=== PATIENT | female | born 1980 | race Two or more races ===

== ENCOUNTER 2016-10-06 08:15 | Emergency (ER) | payer MEDICAID ==
[2016-10-06] MEDS ORDERED: CEPHALEXIN 500 MG CAP PO ONE (08:42)
[2016-10-06] MEDS ORDERED: DEXAMETHASONE 10 MG/ML VIAL PO ONE (08:42)
[2016-10-06 08:46] VITALS: BP 125/86; PULSE 98; RESP 16; TEMP 98.8; O2SAT 96
--- NOTE | 2016-10-06 08:47 | UCPHY ---
H & P Patient Type: Established Time Seen by Provider: 10/06/16 08:38 HPI/ROS: CHIEF COMPLAINT: sore throat, fever HISTORY OF PRESENT ILLNESS: The patient is a 35-year-old female comes to the Urgent Care complaining of a sore throat and fever. She states that 2 of her sons were diagnosed and treated for strep throat last week. She had a temperature of 101 degrees last night. She has not been coughing or had any shortness of breath. She has not had a headache. She has had sinus congestion and body aches. No nausea vomiting. No shortness of breath. REVIEW OF SYSTEMS: Constitutional: See HPI EENTM: See HPI Respiratory: denies: cough, shortness of breath Cardiac: denies: chest pain, irregular heart rate, lightheadedness, palpitations Gastrointestinal/Abdominal: denies: abdominal pain, diarrhea, nausea, vomiting, blood streaked stools Genitourinary: denies: dysuria, frequency, hematuria, pain Musculoskeletal: denies: joint pain, muscle pain Skin: denies: lesions, rash, jaundice, bruising Neurological: denies: headache, numbness, paresthesia, tingling, dizziness, weakness Hematologic/Lymphatic: denies: blood clots, easy bleeding, easy bruising Immunologic/allergic: denies: HIV/AIDS, transplant EXAM: GENERAL: Well-appearing, well-nourished and in no acute distress. HEAD: Atraumatic, normocephalic. EYES: Pupils equal round and reactive to light, extraocular movements intact, sclera anicteric, conjunctiva are normal. ENT: TMs normal, nares patent, oropharynx erythematous with white exudate . Moist mucous membranes. NECK: Normal range of motion, supple without lymphadenopathy or JVD. LUNGS: Breath sounds clear to auscultation bilaterally and equal. No wheezes rales or rhonchi. HEART: Regular rate and rhythm without murmurs, rubs or gallops. ABDOMEN: Soft, nontender, normoactive bowel sounds. No guarding, no rebound. No masses appreciated. BACK: No CVA tenderness, no spinal tenderness, step-offs or deformities EXTREMITIES: Normal range of motion, no pitting or edema. No clubbing or cyanosis. NEUROLOGICAL: Cranial nerves II through XII grossly intact. Normal speech, normal gait. 5/5 strength, normal movement in all extremities, normal sensation PSYCH: Normal mood, normal affect. SKIN: Warm, dry, normal turgor, no visible rashes or lesions. Source: Patient Exam Limitations: No limitations - Medical/Surgical History Hx Asthma: No Hx Chronic Respiratory Disease: No Hx Diabetes: No Hx Cardiac Disease: No Hx Renal Disease: No Hx Cirrhosis: No Other PMH: PCP Naseem Butt [facility]. Chronic Pancreatitis idiopathic. Tubal ligation. ERCP. Flu . Tetanus NONE - Family History Significant Family History: Hypertension - Social History Smoking Status: Never smoked Alcohol Use: Sober Drug Use: None Constitutional: Initial Vital Signs Temperature (C) 37.1 C 10/06/16 08:38 Heart Rate 98 10/06/16 08:38 Respiratory Rate 16 10/06/16 08:38 Blood Pressure 125/86 H 10/06/16 08:38 O2 Sat (%) 96 10/06/16 08:38 O2 Delivery Mode Room Air Allergies/Adverse Reactions: codeine Allergy (Verified 10/06/16 08:46) erythromycin base Allergy (Verified 10/06/16 08:46) orange (food color) Allergy (Verified 10/06/16 08:46) Penicillins Allergy (Verified 10/06/16 08:46) red dye Allergy (Verified 10/06/16 08:46) tetanus and diphtheria toxoids [tetanus & diphtheria toxoids] Allergy (Verified 10/06/16 08:46) tetracycline Allergy (Verified 10/06/16 08:46) Home Medications: Medication Instructions Recorded Lansoprazole [Prevacid] 07/22/15 Albuterol [Proventil 2 mg (*)] PRN 09/30/15 Loratadine [Claritin] 09/30/15 Sumatriptan Succinate [IMITREX] 09/30/15 Cephalexin [Keflex (*)] 500 mg PO BID #20 cap 07/29/16 Depo-Provera 07/29/16 Ondansetron HCl Pf 07/29/16 Prevacid 07/29/16 oxyCODONE CR 07/29/16 Cephalexin [Keflex] 500 mg PO TID #21 cap 10/06/16 Medical Decision Making ED Course/Re-evaluation: The patient has symptoms consistent with strep throat and said to family members recently diagnosed. I will start her on antibiotics. I will also give her a dose of Decadron for pain relief. She will continue taking antipyretics. She understands and agrees with this plan. She declines further workup or testing at this time. We discussed indications for returning. She is allergic to azithromycin. She has had success with Keflex before. Differential Diagnosis: Partial list of the Differential diagnosis considered include but were not limited to; strep throat, pharyngitis, influenza, Mononucleosis, viral syndrome and although unlikely based on the history and physical exam, I also considered pneumonia, meningitis, sepsis. I discussed these differential diagnoses and the plan with the patient as well as the usual and expected course. The patient understands that the diagnosis is provisional and that in medicine we are not always correct and that further workup is often warranted. Usual and customary warnings were given. All of the patient's questions were answered. The patient was instructed to return to the emergency department should the symptoms at all worsen or return, otherwise to followup with the physician as we discussed. - Data Points Laboratory Results: 10/06/16 08:35 Group A Strep Screen POSITIVE H (NEGATIVE) Medications Given: Discontinued Medications Cephalexin HCl (Keflex) 500 mg PO EDNOW ONE PRN Reason: Protocol Stop: 10/06/16 08:43 Last Admin: 10/06/16 09:02 Dose: 500 mg Dexamethasone (Decadron Injection) 10 mg PO EDNOW ONE Stop: 10/06/16 08:43 Last Admin: 10/06/16 09:02 Dose: 10 mg Departure - Departure Disposition: Home, Routine, Self-Care Clinical Impression: Pharyngitis Qualifiers: Pharyngitis/tonsillitis etiology: unspecified etiology Qualified Code(s): J02.9 - Acute pharyngitis, unspecified Condition: Fair Instructions: Pharyngitis (ED) Referrals: NONE *PRIMARY CARE P,. [Primary Care Provider] - As per Instructions Khushbu Kumari MD [Medical Doctor] - As per Instructions Prescriptions: Cephalexin [Keflex] 500 mg PO TID #21 cap - PQRS PQRS Measurement: Not applicable
== END 2016-10-06 09:03 | disposition home or self-care (01) ==
LOC: CED 08:15
DX: J02.9 Acute pharyngitis, unspecified (principal)
CPT/HCPCS: 87880-PO; 99214-PO; G0463-PO

== ENCOUNTER 2016-11-10 17:49 | Emergency (ER) | payer MEDICAID ==
[2016-11-10 18:04] VITALS: BP 123/84; PULSE 102; RESP 18; TEMP 98.2; O2SAT 97
--- NOTE | 2016-11-10 18:26 | UCPHY ---
H & P Patient Type: Established Chief Complaint Nursing Narrative: sinus congestion, fevers, sore throat, productive cough, [place], L ear pain, loss of voice x 1.5 weeks. "I think I have a sinus infection" Time Seen by Provider: 11/10/16 18:14 HPI/ROS: CHIEF COMPLAINT: Sinus infection HISTORY OF PRESENT ILLNESS: The patient is a 35-year-old healthy female who comes to the Urgent Care complaining of sinus congestion, pain, dental pain, ear congestion and laryngitis. She does not have a fever. She has had coughing but no shortness of breath. No chest pain. No nausea vomiting or GI symptoms. REVIEW OF SYSTEMS: Constitutional: denies: chills, fever, recent illness, recent injury EENTM: See HPI Respiratory: See HPI Cardiac: denies: chest pain, irregular heart rate, lightheadedness, palpitations Gastrointestinal/Abdominal: denies: abdominal pain, diarrhea, nausea, vomiting, blood streaked stools Genitourinary: denies: dysuria, frequency, hematuria, pain Musculoskeletal: denies: joint pain, muscle pain Skin: denies: lesions, rash, jaundice, bruising Neurological: denies: headache, numbness, paresthesia, tingling, dizziness, weakness Hematologic/Lymphatic: denies: blood clots, easy bleeding, easy bruising Immunologic/allergic: denies: HIV/AIDS, transplant EXAM: GENERAL: Well-appearing, well-nourished and in no acute distress. HEAD: Atraumatic, normocephalic. EYES: Pupils equal round and reactive to light, extraocular movements intact, sclera anicteric, conjunctiva are normal. ENT: Effusions behind both tympanic membranes, tenderness to maxillary sinuses , , nares patent, oropharynx erythematous without exudates. Moist mucous membranes. NECK: Normal range of motion, supple without lymphadenopathy or JVD. LUNGS: Breath sounds clear to auscultation bilaterally and equal. No wheezes rales or rhonchi. HEART: Regular rate and rhythm without murmurs, rubs or gallops. ABDOMEN: Soft, nontender, normoactive bowel sounds. No guarding, no rebound. No masses appreciated. BACK: No CVA tenderness, no spinal tenderness, step-offs or deformities EXTREMITIES: Normal range of motion, no pitting or edema. No clubbing or cyanosis. NEUROLOGICAL: Cranial nerves II through XII grossly intact. Normal speech, normal gait. 5/5 strength, normal movement in all extremities, normal sensation PSYCH: Normal mood, normal affect. SKIN: Warm, dry, normal turgor, no visible rashes or lesions. Source: Patient, Family - Personal History LMP (Females 10-55): Now Current Tetanus Diphtheria and Acellular Pertussis (TDAP): No Tetanus Vaccine Date: allergy - Medical/Surgical History Hx Asthma: Yes Hx Chronic Respiratory Disease: No Hx Diabetes: No Hx Cardiac Disease: No Hx Renal Disease: No Hx Cirrhosis: No Hx Alcoholism: No Hx HIV/AIDS: No Hx Splenectomy or Spleen Trauma: No Other PMH: asthma, sciatica, Vitamin D deficiency, sinus infections. Chronic Pancreatitis idiopathic. Tubal ligation. ERCP. Flu . Tetanus NONE - Family History Significant Family History: No pertinent family hx - Social History Smoking Status: Never smoked Alcohol Use: Sober Drug Use: None Constitutional: Initial Vital Signs Temperature (C) 36.8 C 11/10/16 17:59 Heart Rate 102 H 11/10/16 17:59 Respiratory Rate 18 11/10/16 17:59 Blood Pressure 123/84 H 11/10/16 17:59 O2 Sat (%) 97 11/10/16 17:59 O2 Delivery Mode Room Air Allergies/Adverse Reactions: codeine Allergy (Verified 11/10/16 18:04) erythromycin base Allergy (Verified 11/10/16 18:04) orange (food color) Allergy (Verified 11/10/16 18:04) Penicillins Allergy (Verified 11/10/16 18:04) red dye Allergy (Verified 11/10/16 18:04) tetanus and diphtheria toxoids [tetanus & diphtheria toxoids] Allergy (Verified 11/10/16 18:04) tetracycline Allergy (Verified 11/10/16 18:04) Home Medications: Medication Instructions Recorded Lansoprazole [Prevacid] 07/22/15 Albuterol [Proventil 2 mg (*)] PRN 09/30/15 Loratadine [Claritin] 09/30/15 Sumatriptan Succinate [IMITREX] 09/30/15 Ondansetron HCl Pf 07/29/16 Prevacid 07/29/16 oxyCODONE CR 07/29/16 Ciprofloxacin [Cipro] 500 mg PO BID #14 tab 11/10/16 Medical Decision Making ED Course/Re-evaluation: 6:20 p.m. the patient has symptoms consistent with sinusitis. She is requesting antibiotics. She has multiple drug allergies. I treated her with Keflex about a month ago for strep throat. I will start her on ciprofloxacin. She is agree with this. She declines further workup or testing. We had a discussion about quinolones and I told them that this is a an antibiotic that could potentially have some serious complications. We agreed that in this situation this is the right medication and one that I would give my family member but they do need to be aware these complications. We discussed increased risk of tendon rupture as well as peripheral neuropathy. I advised the patient to limit high impact activities. I told them to return for evaluation if they develop tendon or joint pain. This conversation represented shared medical decision making. We did consider alternatives. Differential Diagnosis: Partial list of the Differential diagnosis considered include but were not limited to; sinusitis, upper respiratory tract infection, pharyngitis, otitis media and although unlikely based on the history and physical exam, I also considered meningitis, abscess, pneumonia. I discussed these differential diagnoses and the plan with the patient as well as the usual and expected course. The patient understands that the diagnosis is provisional and that in medicine we are not always correct and that further workup is often warranted. Usual and customary warnings were given. All of the patient's questions were answered. The patient was instructed to return to the emergency department should the symptoms at all worsen or return, otherwise to followup with the physician as we discussed. Departure - Departure Disposition: Home, Routine, Self-Care Clinical Impression: Sinusitis Qualifiers: Sinusitis location: maxillary Chronicity: acute Recurrence: non-recurrent Qualified Code(s): J01.00 - Acute maxillary sinusitis, unspecified Condition: Fair Instructions: Sinusitis (ED) Referrals: Torey Hannon DO [Doctor of Osteopathy] - As per Instructions Prescriptions: Ciprofloxacin [Cipro] 500 mg PO BID #14 tab - PQRS PQRS Measurement: Not applicable
== END 2016-11-10 18:35 | disposition home or self-care (01) ==
LOC: CED 17:49
DX: J01.00 Acute maxillary sinusitis, unspecified (principal); J45.909 Unspecified asthma, uncomplicated; K86.1 Other chronic pancreatitis; Z88.0 Allergy status to penicillin; Z88.5 Allergy status to narcotic agent
CPT/HCPCS: G0463-PO

== ENCOUNTER 2017-02-24 11:51 | Emergency (ER) | payer MEDICAID ==
--- NOTE | 2017-02-24 12:19 | EDPHY ---
H & P Stated Complaint: sinus pain severe for 3 days." vomited and severe pain" Time Seen by Provider: 02/24/17 12:11 HPI/ROS: CHIEF COMPLAINT: Sinus pain, vomiting HISTORY OF PRESENT ILLNESS: The patient has a history of chronic pancreatitis. She presents to the ED with a 3 day history of sinus pain, left ear pain and intermittent vomiting. The patient reports she had her lipase checked within the past week and it was slightly elevated at 400. This is not atypical for her. The patient denies any melena or hematochezia. She denies fever. She denies additional complaints. She has been taking Tylenol and ibuprofen at home with some improvement of her symptoms. She has had multiple visits to the urgent care and ED this year for symptoms surrounding sinus pain and vomiting. REVIEW OF SYSTEMS: A comprehensive 10 point review of systems is otherwise negative aside from elements mentioned in the history of present illness. Source: Patient Exam Limitations: No limitations - Personal History LMP (Females 10-55): Unknown Current Tetanus/Diphtheria Vaccine: No Current Tetanus Diphtheria and Acellular Pertussis (TDAP): No Tetanus Vaccine Date: allergy - Medical/Surgical History Hx Asthma: Yes Hx Chronic Respiratory Disease: No Hx Diabetes: No Hx Cardiac Disease: No Hx Renal Disease: No Hx Cirrhosis: No Hx Alcoholism: No Hx HIV/AIDS: No Hx Splenectomy or Spleen Trauma: No Other PMH: asthma, sciatica, Vitamin D deficiency, sinus infections. Chronic Pancreatitis idiopathic. Tubal ligation. ERCP. Tetanus NONE - Social History Smoking Status: Never smoked - Physical Exam Exam: General Appearance: Alert, no distress Eyes: Pupils equal and round no pallor or injection ENT, Mouth: Evidence of left otitis media present, tenderness to palpation over left frontal sinus Respiratory: There are no retractions, lungs are clear to auscultation Cardiovascular: Regular rate and rhythm Gastrointestinal: Minimal epigastric tenderness Neurological: A&O, normal motor function, normal sensory exam, normal cranial nerves Skin: Warm and dry, no rashes Musculoskeletal: Neck is supple nontender Extremities: symmetrical, full range of motion Constitutional: Initial Vital Signs Temperature (C) 36.6 C 02/24/17 11:55 Heart Rate 96 02/24/17 11:55 Respiratory Rate 16 02/24/17 11:55 Blood Pressure 118/94 H 02/24/17 11:55 O2 Sat (%) 97 02/24/17 11:55 O2 Delivery Mode Room Air Allergies/Adverse Reactions: codeine Allergy (Verified 02/24/17 12:07) erythromycin base Allergy (Verified 02/24/17 12:07) orange (food color) Allergy (Verified 02/24/17 12:07) Penicillins Allergy (Verified 02/24/17 12:07) red dye Allergy (Verified 02/24/17 12:07) tetanus and diphtheria toxoids [tetanus & diphtheria toxoids] Allergy (Verified 02/24/17 12:07) tetracycline Allergy (Verified 02/24/17 12:07) Home Medications: Medication Instructions Recorded Lansoprazole [Prevacid] 07/22/15 Albuterol [Proventil 2 mg (*)] PRN 09/30/15 Loratadine [Claritin] 09/30/15 Sumatriptan Succinate [IMITREX] 09/30/15 Ondansetron HCl Pf 07/29/16 Prevacid 07/29/16 oxyCODONE CR 07/29/16 Ciprofloxacin [Cipro] 500 mg PO BID #14 tab 11/10/16 AZITHROMYCIN [Z-PACK] 250 mg PO DAILY #1 packet 02/24/17 Ciprofloxacin [Cipro] 500 mg PO BID #14 tab 02/24/17 oxyCODONE/APAP 5/325 [Percocet 1 - 2 tab PO Q6-8PRN PRN #11 tab 02/24/17 5/325 (RX)] Medical Decision Making ED Course/Re-evaluation: The patient presents the ED with sinusitis, otitis media and an acute exacerbation of chronic abdominal pain. The patient does have evidence of otitis media noted on exam and clinical evidence of a left maxillary sinusitis. The patient will be treate treated with Cipro given her multiple medication allergies . She is given a short prescription for Percocet for pain management. She does have a prescription for Zofran at home. Differential Diagnosis: Differential diagnosis considered includes otitis media, sinusitis, viral syndrome, pharyngitis Departure - Departure Disposition: Home, Routine, Self-Care Clinical Impression: Sinusitis, Otitis media, Chronic pancreatitis Condition: Good Instructions: Sinusitis (ED) Additional Instructions: 1. Please take antibiotics as directed for next week. 2. Take Ibuprofen or Motrin 600 mg by mouth three times a day. 3. Percocet as needed for severe pain 4. Return to the ED for fever, intractable pain or vomiting or other concerns. 5. You have been given the contact number of our on-call ENT physician for further evaluation of your chronic intermittent sinus pain Referrals: NICKO CHRISTINE [Other] - As per Instructions Pierre Jones MD [Medical Doctor] - As per Instructions Prescriptions: AZITHROMYCIN [Z-PACK] 250 mg PO DAILY #1 packet Ciprofloxacin [Cipro] 500 mg PO BID #14 tab oxyCODONE/APAP 5/325 [Percocet 5/325 (RX)] 1 - 2 tab PO Q6-8PRN PRN #11 tab PRN Reason: for pain
[2017-02-24 12:35] VITALS: BP 124/66; PULSE 74; RESP 18; TEMP 98; O2SAT 96
== END 2017-02-24 12:35 | disposition home or self-care (01) ==
LOC: CED 11:51
DX: H66.92 Otitis media, unspecified, left ear (principal); J32.1 Chronic frontal sinusitis; K86.1 Other chronic pancreatitis; J45.909 Unspecified asthma, uncomplicated

== ENCOUNTER 2017-04-03 15:17 | Emergency (ER) | payer MEDICAID ==
--- NOTE | 2017-04-03 15:28 | EDPHY ---
H & P Time Seen by Provider: 04/03/17 15:20 HPI/ROS: 36-year-old female presents complaining of right lower dental pain for approximately 2 days, she states she went to an urgent care today where she was given cephalexin and ibuprofen, but feels she needs something stronger for pain. She is able to swallow, no fevers or chills, no tongue swelling. .Review of systems As per HPI General no fever no chills no weakness HEENT no eye pain no eye discharge. No eye redness, no sore throat Respiratory no cough, no shortness of breath Cardiac no chest pain, no peripheral edema GI no abdominal pain, no diarrhea, no constipation, no nausea, no vomiting no flank pain, no hematuria, no dysuria Musculoskeletal no myalgias, no joint pain Heme no easy bruising, no easy bleeding Endo no polyuria, no polydipsia Skin no rashes, no pruritus Neuro no syncope, no dizziness, no headaches Psych is no suicidal ideation, no homicidal ideation Past Medical/Surgical History: Frequent sinusitis Social History: Denies alcohol or drug use Smoking Status: Never smoked Physical Exam: 36-year-old female alert and oriented in moderate distress secondary to right lower molar pain Vital signs stable, afebrile nontoxic appearance HEENT atraumatic normocephalic, extraocular muscles intact, anicteric Oropharynx negative for erythema negative exudate, tolerating her own secretions No tongue elevation, no gum swelling, mild tenderness to tap of posterior most molar right lower No trismus No lymphadenopathy Neck supple no meningismus Lungs clear to auscultation bilaterally Heart regular rate and rhythm without murmur rub or gallop Abdomen nondistended normoactive bowel sounds soft nontender Back no CVA tenderness, no step-offs, no spinal tenderness Extremities no cyanosis clubbing or edema Neuro alert and oriented, no focal deficits Constitutional: Initial Vital Signs Temperature (C) 36.6 C 04/03/17 15:35 Heart Rate 80 04/03/17 15:35 Respiratory Rate 18 04/03/17 15:35 Blood Pressure 165/70 H 04/03/17 15:35 O2 Sat (%) 98 04/03/17 15:35 O2 Delivery Mode Room Air Allergies/Adverse Reactions: codeine Allergy (Verified 02/24/17 12:07) erythromycin base Allergy (Verified 02/24/17 12:07) orange (food color) Allergy (Verified 02/24/17 12:07) Penicillins Allergy (Verified 02/24/17 12:07) red dye Allergy (Verified 02/24/17 12:07) tetanus and diphtheria toxoids [tetanus & diphtheria toxoids] Allergy (Verified 02/24/17 12:07) tetracycline Allergy (Verified 02/24/17 12:07) Home Medications: Medication Instructions Recorded Lansoprazole [Prevacid] 07/22/15 Albuterol [Proventil 2 mg (*)] PRN 09/30/15 Loratadine [Claritin] 09/30/15 Sumatriptan Succinate [IMITREX] 09/30/15 Ondansetron HCl Pf 07/29/16 Prevacid 07/29/16 oxyCODONE CR 07/29/16 Ciprofloxacin [Cipro] 500 mg PO BID #14 tab 11/10/16 AZITHROMYCIN [Z-PACK] 250 mg PO DAILY #1 packet 02/24/17 Ciprofloxacin [Cipro] 500 mg PO BID #14 tab 02/24/17 oxyCODONE/APAP 5/325 [Percocet 1 - 2 tab PO Q6-8PRN PRN #11 tab 02/24/17 5/325 (RX)] oxyCODONE/APAP 5/325 [Percocet 1 - 2 tab PO Q12H PRN #9 tab 04/03/17 5/325 (*)] Medical Decision Making ED Course/Re-evaluation: Patient seen and evaluated for right-sided dental pain No evidence of outward significant infection such as no tongue elevation no gum swelling no jaw swelling no lymphadenopathy. Differential diagnosis considered Pharyngitis, dental caries, periapical abscess Impression Dental pain, cannot rule out periapical abscess Plan Patient already started on antibiotics today Advise continue those antibiotics and ibuprofen Given very short term prescription for Percocet, #9 Advise follow up with dentist as soon as possible Return if difficulty swallowing or increased swelling. Departure - Departure Disposition: Home, Routine, Self-Care Clinical Impression: Pain, dental Condition: Good Instructions: Toothache (ED) Referrals: NICKO ROSENTHAL WOOD STAINER [Other] - As per Instructions Prescriptions: oxyCODONE/APAP 5/325 [Percocet 5/325 (*)] 1 - 2 tab PO Q12H PRN #9 tab PRN Reason: Pain, Severe
[2017-04-03 15:37] VITALS: RESP 18; TEMP 98
[2017-04-03 15:58] VITALS: BP 112/62; PULSE 74; O2SAT 97
== END 2017-04-03 15:57 | disposition home or self-care (01) ==
LOC: CED 15:17
DX: K08.89 Other specified disorders of teeth and supporting structures (principal)

== ENCOUNTER 2017-05-10 15:45 | Emergency (ER) | payer MEDICAID ==
[2017-05-10 16:00] VITALS: TEMP 97.9
[2017-05-10] MEDS ORDERED: KETOROLAC 15 MG/1 ML SDV IVP ONE (16:09)
[2017-05-10] MEDS ORDERED: NS 1,000 ML IV ONE (16:09)
[2017-05-10] MEDS ORDERED: HALOPERIDOL LACT 5 MG/ML INJ IVP ONE (16:10)
--- NOTE | 2017-05-10 16:13 | EDPHY ---
H & P Stated Complaint: sinus ariza/nausea and dry heaving x3d Time Seen by Provider: 05/10/17 16:06 HPI/ROS: Chief Complaint: Headache, nausea, vomiting HPI: 36-year-old woman with a history of migraine headaches and chronic pancreatitis presenting with a headache that started last evening. Patient states that on Wednesday she had a migraine headache, she took an Imitrex (her last 1) and headache went away. The following evening she developed a headache but it went away on its own. Last night she started vomiting headache retro- orbital behind the left eye. She was also started getting some sinus pressure with the onset of the snowstorm. Today that she has had persistent headache with some nausea and vomiting. The headache is similar to her chronic migraines but is also have some sinus component. Is not worse when she leans forward. She has had some nasal congestion discharge. She did start taking some Flonase today. Denies any fevers or chills. No cough. Is also having some left ear pain. No discharge or ringing in her ears. No visual changes. Has she has some photophobia. She has been able to tolerate some soup and Sprite today. Denies any fevers or chills. No neck pain or stiffness. No recent injuries or traumas. Pain is currently a 8/10. ROS: 10 point Review of Systems is negative except as noted in the HPI. PMH: Migraine headaches, chronic pancreatitis Social History: Denies smoking, denies alcohol Family History: non-contributory Physical Exam: Gen: Awake, Alert, No Distress HEENT: Ears: Bilateral TMs are normal, ear canals normal Face: No sinus tenderness to percussion Nose: no rhinorrhea Eyes: PERRLA, EOMI Mouth: Moist mucosa Neck: Supple, no JVD Chest: nontender, lungs clear to auscultation Heart: S1, S2 normal, no murmur Abd: Soft, non-tender, no guarding Back: no CVA tenderness, no midline tenderness Ext: no edema, non-tender Skin: no rash Neuro: CN II-XII intact, Sensation grossly intact, Strength 5/5 in bilateral upper and lower extremities - Personal History LMP (Females 10-55): Over 28 Days Ago Tetanus Vaccine Date: allergy - Medical/Surgical History Hx Asthma: Yes Hx Chronic Respiratory Disease: No Hx Diabetes: No Hx Cardiac Disease: No Hx Renal Disease: No Hx Cirrhosis: No Hx Alcoholism: No Hx HIV/AIDS: No Hx Splenectomy or Spleen Trauma: No Other PMH: asthma, sciatica, Vitamin D deficiency, sinus infections. Chronic Pancreatitis idiopathic. Tubal ligation. ERCP. Tetanus NONE - Social History Smoking Status: Never smoked Constitutional: Initial Vital Signs Temperature (C) 36.6 C 05/10/17 15:58 Heart Rate 104 H 05/10/17 15:58 Respiratory Rate 20 05/10/17 15:58 Blood Pressure 156/91 H 05/10/17 15:58 O2 Sat (%) 98 05/10/17 15:58 O2 Delivery Mode Room Air Allergies/Adverse Reactions: codeine Allergy (Verified 05/10/17 16:00) erythromycin base Allergy (Verified 05/10/17 16:00) orange (food color) Allergy (Verified 05/10/17 16:00) Penicillins Allergy (Verified 05/10/17 16:00) red dye Allergy (Verified 05/10/17 16:00) tetanus and diphtheria toxoids [tetanus & diphtheria toxoids] Allergy (Verified 05/10/17 16:00) tetracycline Allergy (Verified 05/10/17 16:00) Home Medications: Medication Instructions Recorded Lansoprazole [Prevacid] 07/22/15 Albuterol [Proventil 2 mg (*)] PRN 09/30/15 Loratadine [Claritin] 09/30/15 Sumatriptan Succinate [IMITREX] 09/30/15 Ondansetron HCl Pf 07/29/16 Prevacid 07/29/16 oxyCODONE CR 07/29/16 oxyCODONE/APAP 5/325 [Percocet 1 - 2 tab PO Q6-8PRN PRN #11 tab 02/24/17 5/325 (RX)] oxyCODONE/APAP 5/325 [Percocet 1 - 2 tab PO Q12H PRN #9 tab 04/03/17 5/325 (*)] Medical Decision Making ED Course/Re-evaluation: 36-year-old woman presenting with symptoms consistent with a migraine. She may have some upper respiratory symptoms but findings are not consistent with sinusitis at this time. I have ordered Haldol and Toradol. Patient states her headache is now gone after Haldol. She did not want the Toradol. Will discharge her with follow up with primary care physician, return for worsening. - Data Points Medications Given: Discontinued Medications Haloperidol Lactate (Haldol Injection) 2.5 mg IVP EDNOW ONE Stop: 05/10/17 16:11 Last Admin: 05/10/17 16:38 Dose: 2.5 mg Sodium Chloride (Ns) 1,000 mls @ 0 mls/hr IV ONCE ONE; Wide Open PRN Reason: Protocol Stop: 05/10/17 16:10 Last Admin: 05/10/17 16:28 Dose: 1,000 mls Departure - Departure Disposition: Home, Routine, Self-Care Clinical Impression: Migraine headache Condition: Good Instructions: Migraine Headache (ED) Additional Instructions: Follow up with your primary care physician in 2-3 days for further evaluation. Return to the emergency department for increasing headache, nausea, vomiting, fevers, chills, or any other concerns. Referrals: NONE *PRIMARY CARE P,. [Primary Care Provider] - As per Instructions
[2017-05-10 16:47] VITALS: RESP 16
[2017-05-10 17:16] VITALS: BP 141/94; PULSE 92; O2SAT 97
== END 2017-05-10 17:17 | disposition home or self-care (01) ==
LOC: CED 15:45
DX: G43.909 Migraine, unspecified, not intractable, without status migrainosus (principal); J45.909 Unspecified asthma, uncomplicated; E86.9 Volume depletion, unspecified
CPT/HCPCS: 96374; J1885

== ENCOUNTER 2017-08-21 17:46 | Emergency (ER) | payer MEDICAID ==
[2017-08-21 17:53] VITALS: RESP 16; TEMP 98.2
[2017-08-21] MEDS ORDERED: methylPREDNISolone SOD SUCC 125 MG/2 ML VIAL ONE (17:59)
[2017-08-21] MEDS ORDERED: NS 1,000 ML IV ONE (18:03)
[2017-08-21] MEDS ORDERED: RANITIDINE 50 MG/2 ML VIAL IVP ONE (18:03)
[2017-08-21] MEDS ORDERED: methylPREDNISolone SOD SUCC 125 MG/2 ML VIAL IVP ONE ×2 (18:03→18:04)
--- NOTE | 2017-08-21 18:07 | CPEKG ---
Heart Rate: 103 RR Interval: 583 P-R Interval: 140 QRSD Interval: 86 QT Interval: 340 QTC Interval: 445 P Spencer: 73 QRS Spencer: 72 T Wave Spencer: 73 EKG Severity - BORDERLINE ECG - EKG Impression: SINUS TACHYCARDIA EKG Impression: BORDERLINE T ABNORMALITIES, ANT-LAT LEADS Electronically Signed By: Stevo Pozo 21-Aug-2017 22:35:48
--- NOTE | 2017-08-21 18:16 | EDPHY ---
H & P Time Seen by Provider: 08/21/17 17:52 HPI/ROS: HPI Allergic reaction. 36-year-old female by private vehicle with family. She has multiple food and medication allergies. She reports that she had some cough drops and shortly after this she developed a sensation of swelling in her mouth and upper lip as well as tingling in her face and hands. She denies a history of anaphylaxis. She does not carry an EpiPen. ROS: Constitutional: No fever, no chills. No weakness. As above. Eyes: No discharge. No changes in vision. ENT: No sore throat. No nasal congestion or rhinorrhea. As above. Respiratory: No cough. Mild shortness of breath.. Cardiac: No chest pain, no palpitations. Gastrointestinal: No abdominal pain, no vomiting, no diarrhea. Genitourinary: No hematuria. No dysuria or increased frequency with urination. Musculoskeletal: No back pain. No neck pain. No myalgias or arthralgias. Skin: No rashes. Neurological: No headache. No focal weakness or altered sensation. As above. Past medical history: As above. She also has an allergy to Benadryl. Other past medical history includes asthma, sciatica, vitamin-D deficiency, sinus infections, chronic pancreatitis, tubal ligation. Social history: Nonsmoker. Here with family. Physical Exam: General Appearance: Alert, anxious. This patient is responding to questions appropriately and in full sentences. This patient appears well-hydrated and well-nourished. Eyes: Pupils equal and round no pallor or injection. No lid edema, erythema or injection. ENT, Mouth: Mucous membranes are moist. Swelling of the left upper lip noted. The pharyngeal tissues are unremarkable. No edema or swelling. No asymmetry suggestive of abscess. No erythema or exudates. No stridor on auscultation of her neck. No voice changes. She has some subtle swelling to her upper lip, greater on the left side. Respiratory: There are no retractions, lungs are clear to auscultation with good air movement bilaterally. Cardiovascular: Regular rate and rhythm. No murmur. Neurological: Motor sensory function is grossly intact. Cranial nerves are normal. Gait is normal. Skin: Warm and dry, no rashes. Musculoskeletal: Neck is supple and nontender. Extremities are symmetrical. All joints range without pain or impingement. Psychiatric: No agitation. No depression. Database: EKG: EKG time is 6:05 p.m.; EKG shows a narrow complex normal sinus tachycardia with a ventricular rate of 103. The DC, QRS, QT intervals are within normal limits. There are no ST-T wave changes indicative of ischemic or injury pattern. No evidence of right heart strain. Interpreted by me. Imaging: Procedures: Emergency department course: IV placed. She was placed on a monitor. Vital signs reviewed by myself. She was started on IV normal saline with 500 cc to 1 L to be given over the next hour. She was initially given 0.3 mg of intramuscular epinephrine, 50 mg of IV ranitidine and 125 mg of IV Solu-Medrol. 6:50 p.m., patient re-evaluated. Resting comfortably at this time. Feeling better. 7:20 p.m., patient re-evaluated. She feels much better. Repeat pharyngeal exam is unremarkable. No pharyngeal edema or swelling. Her left upper lip swelling has resolved. No voice changes. No stridor on auscultation of her neck. She feels comfortable going home right now and I feel she is safe for discharge. I will prescribe her short course of prednisone for the next few days. Follow-up and return to emergency department precautions reviewed. All of her questions were answered. She was discharged in good condition. Differential Diagnosis: The differential diagnosis on this patient includes but is not limited to allergic reaction, angioedema, anaphylaxis. This represents a partial list of diagnoses considered. These considerations are based on history, physical exam , past history, reassessment and diagnostic testing. Smoking Status: Never smoked Constitutional: Initial Vital Signs Temperature (C) 36.8 C 08/21/17 17:50 Heart Rate 110 H 08/21/17 17:50 Respiratory Rate 16 08/21/17 17:50 Blood Pressure 148/105 H 08/21/17 17:50 O2 Sat (%) 100 08/21/17 17:50 O2 Delivery Mode Room Air Allergies/Adverse Reactions: codeine Allergy (Verified 08/21/17 17:54) Pt reports vomiting diphenhydramine [From Benadryl] Allergy (Verified 08/21/17 17:54) Pt reports muscle aches erythromycin base Allergy (Verified 08/21/17 17:54) Pt reports rash orange (food color) Allergy (Verified 08/21/17 17:54) Pt reports vomiting Penicillins Allergy (Verified 08/21/17 17:54) Pt reports rash red dye Allergy (Verified 08/21/17 17:54) Pt reports vomit tetanus and diphtheria toxoids [tetanus & diphtheria toxoids] Allergy (Verified 08/21/17 17:54) Pt reports "stress reaction" tetracycline Allergy (Verified 08/21/17 17:54) Pt reports rash Home Medications: Medication Instructions Recorded Prevacid 08/21/17 Zofran 08/21/17 predniSONE [prednisone 20mg (RX)] 60 mg PO DAILY #9 tab 08/21/17 Medical Decision Making - Data Points Medications Given: Discontinued Medications Epinephrine HCl (Epinephrine) 0.5 mg IM EDNOW ONE Stop: 08/21/17 18:04 Last Admin: 08/21/17 18:13 Dose: Not Given Epinephrine HCl (Epinephrine) 0.3 mg IM EDNOW ONE Stop: 08/21/17 18:04 Last Admin: 08/21/17 18:06 Dose: 0.3 mg Sodium Chloride (Ns) 1,000 mls @ 0 mls/hr IV ONCE ONE; Wide Open PRN Reason: Protocol Stop: 08/21/17 18:04 Last Admin: 08/21/17 18:08 Dose: 1,000 mls Methylprednisolone Sodium Succinate (Solu-Medrol) 125 mg IVP EDNOW ONE Stop: 08/21/17 18:05 Last Admin: 08/21/17 18:05 Dose: 125 mg Methylprednisolone Sodium Succinate (Solu-Medrol) 125 mg IVP EDNOW ONE Stop: 08/21/17 18:04 Last Admin: 08/21/17 18:13 Dose: Not Given Ranitidine HCl (Zantac) 50 mg IVP EDNOW ONE Stop: 08/21/17 18:04 Last Admin: 08/21/17 18:08 Dose: 50 mg Departure - Departure Disposition: Home, Routine, Self-Care Clinical Impression: Allergic reaction Condition: Good Instructions: General Allergic Reaction (ED) Additional Instructions: Read and follow provided instructions. Follow-up with your primary care physician on Wednesday of this week for re- evaluation. Take medication as prescribed. Return to the emergency department for worsening symptoms, sensation of swelling in your throat, difficulty breathing, facial swelling or other serious concerns. Referrals: Siobhan Sampson DO [Primary Care Provider] - As per Instructions Prescriptions: predniSONE [prednisone 20mg (RX)] 60 mg PO DAILY #9 tab
[2017-08-21 19:05] VITALS: PULSE 106
[2017-08-21] MEDS ORDERED: predniSONE 20 MG TAB ONE (19:29)
[2017-08-21] MEDS ORDERED: predniSONE 20 MG TAB PO ONE (19:30)
[2017-08-21 19:41] VITALS: BP 117/90; O2SAT 98
== END 2017-08-21 19:35 | disposition home or self-care (01) ==
LOC: CED 17:46
DX: T78.40XA Allergy, unspecified, initial encounter (principal); J45.909 Unspecified asthma, uncomplicated; E86.9 Volume depletion, unspecified
CPT/HCPCS: 96374; J0171; J2780; J2930; J7512

== ENCOUNTER → 2017-10-01 | Outpatient (CLI) | payer MEDICAID | LOC: FIMAGING 10:13 | PROVIDERS: ATTEND Family Medicine | DX: N91.2 Amenorrhea, unspecified (principal); Z98.51 Tubal ligation status ==

== ENCOUNTER 2017-11-21 11:07 | Emergency (ER) | payer MEDICAID ==
[2017-11-21] MEDS ORDERED: RANITIDINE 50 MG/2 ML VIAL IVP ONE (11:29)
[2017-11-21] MEDS ORDERED: methylPREDNISolone SOD SUCC 125 MG/2 ML VIAL IVP ONE (11:29)
[2017-11-21] MEDS ORDERED: NS 1,000 ML IV ONE (11:30)
--- NOTE | 2017-11-21 11:30 | EDPHY ---
H & P Time Seen by Provider: 11/21/17 11:17 HPI/ROS: 36-year-old female presents complaining of allergic reaction after taking a bite of a candy bar that had honey in at she states she has had a prior allergic reaction to honey and did not realize this was an ingredient in the candy bar. Her symptoms are left facial tingling swelling in left upper lip swelling. No difficulty swallowing, no shortness of breath, no rash no hives. Review of systems As per HPI General no fever no chills no weakness HEENT no eye pain no eye discharge. No eye redness, no sore throat Respiratory no cough, no shortness of breath Cardiac no chest pain, no peripheral edema GI no abdominal pain, no diarrhea, no constipation, no nausea, no vomiting no flank pain, no hematuria, no dysuria Musculoskeletal no myalgias, no joint pain Heme no easy bruising, no easy bleeding Endo no polyuria, no polydipsia Skin no rashes, no pruritus Neuro no syncope, no dizziness, no headaches Psych is no suicidal ideation, no homicidal ideation Past Medical/Surgical History: Multiple food allergies Asthma Social History: Denies alcohol or drug use Smoking Status: Never smoked Physical Exam: 36-year-old female HEENT atraumatic normocephalic, extraocular muscles intact, anicteric No uvular edema, no stridor Very minimal left upper lateral lip swelling, no erythema, no increased warmth, no hives Oropharynx negative for erythema negative exudate, tolerating her own secretions Neck supple no meningismus Lungs clear to auscultation bilaterally Heart regular rate and rhythm without murmur rub or gallop Abdomen nondistended normoactive bowel sounds soft nontender Back no CVA tenderness, no step-offs, no spinal tenderness Extremities no cyanosis clubbing or edema Neuro alert and oriented, no focal deficits Constitutional: Initial Vital Signs Temperature (C) 36.9 C 11/21/17 11:14 Heart Rate 104 H 11/21/17 11:14 Respiratory Rate 16 11/21/17 11:14 Blood Pressure 133/94 H 11/21/17 11:14 O2 Sat (%) 99 11/21/17 11:14 O2 Delivery Mode Room Air Allergies/Adverse Reactions: codeine Allergy (Verified 11/21/17 11:18) Pt reports vomiting diphenhydramine [From Benadryl] Allergy (Verified 11/21/17 11:18) Pt reports muscle aches erythromycin base Allergy (Verified 11/21/17 11:18) Pt reports rash orange (food color) Allergy (Verified 11/21/17 11:18) Pt reports vomiting Penicillins Allergy (Verified 11/21/17 11:18) Pt reports rash red dye Allergy (Verified 11/21/17 11:18) Pt reports vomit tetanus and diphtheria toxoids [tetanus & diphtheria toxoids] Allergy (Verified 11/21/17 11:18) Pt reports "stress reaction" tetracycline Allergy (Verified 11/21/17 11:18) Pt reports rash Home Medications: Medication Instructions Recorded Prevacid 08/21/17 Zofran 08/21/17 Albuterol PRN 11/21/17 Flovent Diskus 11/21/17 predniSONE [Deltasone] 40 mg PO DAILY 3 Days #6 tablet 11/21/17 Medical Decision Making ED Course/Re-evaluation: Patient seen and evaluated for mild left upper lip and face tingling following consuming a product which may have had an ingredient that she was allergic to, specifically honey. Physical exam relatively benign however patient with a history of multiple food and seasonal allergies Patient given IV ranitidine 50 mg and Solu-Medrol 125 mg, IV normal saline 1 L and observed for approximately 90 min She had no further swelling and felt markedly better after these medications. Impression Likely allergic reaction to honey Plan Discharge home Prednisone 40 mg daily x4 days. Follow-up with PCP Differential Diagnosis: Differential diagnosis considered but not limited to Allergic reaction, angioedema, anaphylaxis - Data Points Medications Given: Discontinued Medications Sodium Chloride (Ns) 1,000 mls @ 0 mls/hr IV ONCE ONE PRN Reason: Wide Open Stop: 11/21/17 11:31 Last Admin: 11/21/17 11:35 Dose: 1,000 mls Methylprednisolone Sodium Succinate (Solu-Medrol) 125 mg IVP EDNOW ONE Stop: 11/21/17 11:30 Last Admin: 11/21/17 11:38 Dose: 125 mg Ranitidine HCl (Zantac) 50 mg IVP EDNOW ONE Stop: 11/21/17 11:30 Last Admin: 11/21/17 11:41 Dose: 50 mg Departure - Departure Disposition: Home, Routine, Self-Care Clinical Impression: Allergic reaction Condition: Good Instructions: Food Allergy (ED), General Allergic Reaction (ED) Referrals: Siobhan Sampson DO [Primary Care Provider] - As per Instructions Prescriptions: predniSONE [Deltasone] 40 mg PO DAILY 3 Days #6 tablet
[2017-11-21] MEDS ORDERED: predniSONE 20 MG TAB ONE (12:48)
[2017-11-21] MEDS ORDERED: predniSONE 20 MG TAB PO ONE (12:52)
[2017-11-21 12:54] VITALS: BP 124/82
[2017-11-22] MEDS ORDERED: predniSONE 20 MG TAB PO ONE (08:00)
== END 2017-11-21 13:00 | disposition home or self-care (01) ==
LOC: CED 11:07
DX: T78.1XXA Other adverse food reactions, not elsewhere classified, initial encounter (principal); J45.909 Unspecified asthma, uncomplicated
CPT/HCPCS: 96374; J2780; J2930; J7512

== ENCOUNTER 2017-11-26 13:51 | Emergency (ER) | payer MEDICAID ==
--- NOTE | 2017-11-26 14:27 | EDPHY ---
H & P Time Seen by Provider: 11/26/17 14:09 HPI/ROS: CHIEF COMPLAINT: "I think I might be having allergic reaction" HISTORY OF PRESENT ILLNESS: The patient is a 36-year-old female who is concerned that she is having allergic reaction. A few weeks ago the patient was taking cough lozenges. She felt as though she was having a mild allergic reaction. She states that she visit her physician in a thought this was possible reaction to the honey and a cough drop. On 11/21/2017 the patient was exposed to a candy bar that had honey in it. She came to the emergency department because she had left facial tingling and swelling of her upper lip. She was felt to be having allergic reaction. She was given ranitidine and Solu- Medrol IV. She was observed for 90 min subsequently sent home. She was treated with prednisone, albuterol and Flovent. Patient states that she was prescribed 40 mg daily but has only been taking 1 prednisone pill per day. She realized this was only 20 mg. Patient presents today concerned that she is having ongoing symptoms. She feels some tingling at her left jaw. She has no swelling. No shortness of breath. No difficulty swallowing. No chest pain. No focal weakness or numbness. No headache. No recent trauma or fall. No neck pain. REVIEW OF SYSTEMS: My complete review of systems is negative except as mentioned in the HPI. Past Medical/Surgical History: Includes seasonal allergies, asthma, food allergies, pancreatitis, sinus infection, sciatica Past surgical history: Includes tubal ligation Social history: The patient does not smoke or drink alcohol. She denies drug use. Smoking Status: Never smoked Physical Exam: 36.9, 153/91, 105, 18, 95% on room air GENERAL: Well-appearing, in no acute distress, alert. HEENT: PERRLA. Eyes normal to inspection, normal pharynx, no signs of dehydration. No swelling. Uvula is midline. NECK: No thyromegaly, no lymphadenopathy, supple. No palpable mass. No stridor. No rash. RESPIRATORY: Clear to auscultation bilaterally, no rales, rhonchi or wheezing. CVS: Regular rate and rhythm, no rubs, murmurs, or gallops. ABDOMEN: Soft, nontender, nondistended, no organomegaly. BACK: Normal to inspection, no CVA tenderness. SKIN: Normal color, no rash, warm, dry. No pallor. EXTREMITIES: No pedal edema, no joint swelling. NEURO/PSYCH: Higher functions: Alert and Oriented x3. Normal speech and cognition. Normal mood and affect. Cranial nerves: Normal as tested. Cerebellar: Normal as tested. Good finger to nose, good [id number], normal gait. Peripheral exam: Normal motor exam. Normal sensation. Normal reflexes. Constitutional: Initial Vital Signs Temperature (C) 36.9 C 11/26/17 13:59 Heart Rate 105 H 11/26/17 13:59 Respiratory Rate 18 11/26/17 13:59 Blood Pressure 153/91 H 11/26/17 13:59 O2 Sat (%) 95 11/26/17 13:59 O2 Delivery Mode Room Air Allergies/Adverse Reactions: codeine Allergy (Verified 11/21/17 11:18) Pt reports vomiting diphenhydramine [From Benadryl] Allergy (Verified 11/21/17 11:18) Pt reports muscle aches erythromycin base Allergy (Verified 11/21/17 11:18) Pt reports rash orange (food color) Allergy (Verified 11/21/17 11:18) Pt reports vomiting Penicillins Allergy (Verified 11/21/17 11:18) Pt reports rash red dye Allergy (Verified 11/21/17 11:18) Pt reports vomit tetanus and diphtheria toxoids [tetanus & diphtheria toxoids] Allergy (Verified 11/21/17 11:18) Pt reports "stress reaction" tetracycline Allergy (Verified 11/21/17 11:18) Pt reports rash Home Medications: Medication Instructions Recorded Prevacid 08/21/17 Zofran 08/21/17 Albuterol PRN 11/21/17 Flovent Diskus 11/21/17 predniSONE [Deltasone] 40 mg PO DAILY 3 Days #6 tablet 11/21/17 Medical Decision Making ED Course/Re-evaluation: In the emergency department I discussed possible etiologies with the patient. I reviewed her record from her previous visit on 11/21. At this time the patient fevers well. I do not feel she needs laboratory studies drawn. I do not feel this represents an acute CVA. I do not feel she needs imaging at this time. She is currently taking prednisone. Without any significant findings on exam I do not prescribe her more prednisone. She will follow up with the primary care physician. Differential Diagnosis: My differential includes but is not limited to allergic reaction, zoster, trigeminal neuralgia, ischemic CVA, hemorrhagic CVA, dissection, Mayda's syndrome Departure - Departure Disposition: Home, Routine, Self-Care Clinical Impression: Allergic reaction Qualifiers: Encounter type: initial encounter Qualified Code(s): T78.40XA - Allergy, unspecified, initial encounter Condition: Good Instructions: Food Allergy (ED), General Allergic Reaction (ED) Additional Instructions: Return with increasing swelling, tingling, shortness of breath, headache, weakness, numbness or any other concerns. Referrals: Siobhan Sampson, DO [Primary Care Provider] - 3-4 days, if not improved
[2017-11-26 14:58] VITALS: BP 118/82
== END 2017-11-26 14:56 | disposition home or self-care (01) ==
LOC: CED 13:51
DX: T78.40XA Allergy, unspecified, initial encounter (principal); J45.909 Unspecified asthma, uncomplicated